=== PATIENT | male | born 1950 | race Two or more races ===

== ENCOUNTER 2020-06-20 03:29 | Inpatient (IN) | payer MEDICARE, OTHER ==
[2020-06-20] VITALS (13 sets, daily range): BP systolic 114–170; BP diastolic 54–111
[~2020-06-20] VITALS: Ht 165.1 cm; Wt 55.3 kg
--- NOTE | 2020-06-20 04:50 | NUR ---
POSTAL SUPERVISOR RCD PT FROM [place] TD OVERFLOW DX SYNCOPE, BRADYCARDIA, HYPOKALEMIA.PT IS A/O x4. [id number] ON MONITOR. ON ROOM AIR NO DISTRESS NOTED. NO SKIN BREAKDOWN NOTED. PT RESISTANT TO CARE STATING HE HOPES TO GO HOME TODAY AND DOES NOT WANT TO BE HERE. PT HESISTANT TO ANSWER ADMISSION QUESTIONS STATING HIS ANSWERS MIGHT AFFECT THTE CARE HE IS GIVEN.
[2020-06-20] MEDS ORDERED: ACETAMINOPHEN 325 MG TABLET PO PRN (05:30)
[2020-06-20] MEDS ORDERED: MAG HYDROX/AL HYDROX/SIMETH 30 ML UDC PO PRN (05:30)
[2020-06-20] MEDS ORDERED: ZOLPIDEM TARTRATE 5 MG TABLET PO PRN (05:30)
[2020-06-20] MEDS ORDERED: Z GUARD REMEDY 2 OZ OINT TP PRN (05:30)
[2020-06-20] MEDS ORDERED: MORPHINE SULFATE INJ 2 MG/ML DISP.SYRIN IV PRN (05:30)
[2020-06-20] MEDS ORDERED: ONDANSETRON HCL/PF 4 MG/2 ML VIAL IVP PRN (05:30)
[2020-06-20] MEDS ORDERED: MAGNESIUM HYDROXIDE 30 ML UDC PO PRN (05:30)
[2020-06-20] MEDS ORDERED: ATROPINE SULFATE 1 MG/10 ML DISP.SYRIN IV ONE (05:30)
[2020-06-20] MEDS ORDERED: HYDROCODONE/APAP 5/325MG TABLET PO PRN (05:30)
[2020-06-20] MEDS: IV NS 0.9% 1,000 ML IV PRN (05:54)
[2020-06-20 06:22] LABS: BASOPHILS % (AUTO) 0.3 % (0.0-2.0); EOSINOPHILS % (AUTO) 1.8 % (0.0-6.0); HEMATOCRIT 38 % (39-51); HEMOGLOBIN 12.5 g/dL (13.5-17.5); LYMPHOCYTES # (AUTO) 1.6 /CMM (0.8-4.8); LYMPHOCYTES % (AUTO) 27.1 % (20.0-44.0); MEAN CORPUSCULAR HGB CONC 33 g/dl (31.0-36.0); MEAN CORPUSCULAR VOLUME 96 fL (80-96); MONOCYTES # (AUTO) 0.6 /CMM (0.1-1.30); MONOCYTES % (AUTO) 10.5 % (2.0-12.0); NEUTROPHILS # (AUTO) 3.5 /CMM (1.8-8.9); NEUTROPHILS % (AUTO) 60.3 % (43.0-81.0); PLATELET COUNT (AUTO) 178 /CMM (150-450); RED BLOOD CELL COUNT(AUTO) 3.91 MIL/uL (4.5-6.0); WHITE BLOOD COUNT (AUTO) 5.9 K/uL (4.3-11.0)
--- NOTE | 2020-06-20 06:23 | NUR ---
SENIOR SHIPPING CLERK PT WILL ASK TO PROVIDE HIM WITH LIST OF HOME MEDS. PER PT ALL INFORMATION WAS GIVEN TO NURSE AT [place]. PT DECLINES SCDS AT THIS TIME.
[2020-06-20 06:48] LABS: CALCIUM, SERUM 8.9 mg/dL (8.5-10.1); CARBON DIOXIDE 27 mmol/L (21-32); CHLORIDE 108 mmol/L (98-107); GLUCOSE 110 mg/dL (74-106); POTASSIUM 4.5 mmol/L (3.5-5.1); SODIUM SERUM 143 mmol/L (136-145); UREA NITROGEN, BLOOD 20 mg/dL (7-18)
[2020-06-20 06:58] LABS: CHOLESTEROL 99 mg/dL (<200); HDL CHOLESTEROL 47 mg/dL (40-60); LDL 45 mg/dL (0-99); THYROID STIMULATING HORMONE 0.784 uIU/mL (0.358-3.74); TRIGLYCERIDES 42 mg/dL (30-150)
[2020-06-20 07:02] LABS: ALANINE AMINOTRANSFERASE 20 U/L (12-78); ALBUMIN 3.6 g/dL (3.4-5.0); ALKALINE PHOSPHATASE 64 U/L (46-116); ASPARTATE AMINOTRANSFERASE 16 U/L (15-37); BILIRUBIN,TOTAL 0.3 mg/dL (0.2-1.0); NT-PRO BNP 91 PG/ML (0-125); PHOSPHORUS 3.4 mg/dL (2.5-4.9); TOTAL PROTEIN, SERUM 6.8 g/dL (6.4-8.2)
[2020-06-20] MEDS ORDERED: SERT-438 PO (07:03)
[2020-06-20] MEDS ORDERED: DOCU100T28 PO (07:03)
[2020-06-20] MEDS ORDERED: OLAN15TA3 PO (07:03)
[2020-06-20] MEDS ORDERED: DOLU1TAB2 PO (07:03)
--- NOTE | 2020-06-20 07:05 | NUR ---
CLINICAL LEADER 0705-BEDSIDE REPORT TAKEN FROM [facility] NURSE DEMETRIUS RODRIGUEZ. PT AWAKE, ALERT ORIENTED X4, FOLLOWS COMMANDS AND RESTING COMFORTABLE IN BED. PT ON ROOM AIR TOLERATING WELL. LUNG SOUNDS CLEAR. PT SINUS ARLINE ON THE MONITOR HR 50S, PT AFEBRILE. BOWEL SOUNDS PRESENT, ABD SOFT NONDISTENDED. PT MOVES BUE AND BLE 5/5. SKIN CHECK DONE, SKIN INTACT, NO WOUNDS NOTED. BUE AND BLE PULSES PRESENT. PT CONTINENT, VOIDS IN URINAL. ALL PIV SITES ASSESSED. ALL IVF VERIFIED. VITALS STABLE. SAFETY MEAURES IN PLACE. NO SIGNS OF ACUTE DISTRESS AT THIS TIME. WILL CONTINUE TO MONITOR.
[2020-06-20 07:12] LABS: MAGNESIUM 2.3 mg/dL (1.8-2.4)
[2020-06-20] MEDS ORDERED: ATOR40TA PO (08:19)
[2020-06-20] MEDS ORDERED: LEVO125T8 PO (08:19)
[2020-06-20] MEDS ORDERED: GABA600T12 PO (08:20)
--- NOTE | 2020-06-20 08:21 | NUR ---
med recon nurse notes home medications verified with pt at bedside, but some of his medications unable to remember the names. primary nurse made aware.
--- NOTE | 2020-06-20 09:13 | NUR ---
MANAGER HEAVY DUTY 0907- PT REFUSING CARE AND WANTS TO LEAVE AMA. PT REFUSING TO SIGN AMA FORM, FORM SIGNED AND WITNESSED WITH CHARGE NURSE STAN RODRIGUEZ AND PLACED IN PT CHART. DR GASCA NOTIFIED ABOUT PT LEAVING AMA, OK PER .
--- NOTE | 2020-06-20 09:25 | NUR ---
PERITONEAL DIALYSIS REGISTERED NURSE 0925 DR CONTRERAS AT BEDSIDE TALKING TO PT. PT IRRATE AND ABOUT TO LEAVE AMA. MD CONVINCED PT TO STAY AND ALLOW FOR ORTHOSTATIC VITALS TO BE TAKEN. AWAITING FOR MD TO CALL BACK FOR RESULTS, WILL FOLLOW UP WITH MD IF CALL NOT RECEIVED. CHARGE NURSE STAN AT BEDSIDE TALKING TO PT, PT IRRATE AND ARGUMENTATIVE, DRESSED AND READY TO LEAVE. STANDING- HR- 79/ BP 170/110 (130)/ RR 14/ SPO2 94% SITTING - HR- 63/ BP 149/111 (124)/ RR24 /SPO2 96% LAYING DOWN- HR 47/ BP 123/74 (92)/ RR20/ SPO2 95%
--- NOTE | 2020-06-20 10:12 | NUR ---
SENIOR RESEARCH ENGINEER TELEPHONE REPORT GIVEN TO [facility] RN MADHU PER CHARGE NURSE STAN REQUEST, PENDING PT AND MD DECISION WHETHER PT TO STAY IN HOSPITAL OR TO LEAVE AMA. PT TRANSPORTED TO [facility] VIA WHEELCHAIR WITH ALL BELONGINGS. PT AWAKE, ALERT AND ORIENTED. PT AMBULATORY WITH STEADY GAIT. VITALS STABLE. SAFEYT MEASURES IN PLACE. NO SIGNS OF ACUTE DISTRESS AT THIS TIME. SECOND SET OF ORTHOSTATIC VITALS ENDORSED TO [facility] RN PER MD ORDER.
--- NOTE | 2020-06-20 10:16 | NUR ---
HAZMAT TANKER DRIVER NOTES RECEIVED PT FROM ICU VIA WHEELCHAIR, PATIENT COMPLAIN AND FILLED WITH ANXIETY UPON ARRIVAL,ALERT, AWAKE, ORIENTED X 3, PORTUGUESE SPEAKING, PROVIDED WARM BLANKET FOR COMFORT, COOPERATED WITH APPLICATION OF TELE-MONITOR SINUS ARLINE AND VS TAKEN, DENIES SOB OR ANY PAIN OR DISCOMFORT. ENCOURAGED TO RELAX , PENDING PT AND MD DECISION WHETHER PT TO STAY IN HOSPITAL OR TO LEAVE AMA, DISCUSSING MATTERS WITH PATIENT AT THIS TIME EDUCATING PATIENT ON PROS AND CONS IF HE GOES AMA, PT AMBULATORY WITH STEADY GAIT. SAFETY MEASURES IN PLACE. BED LOW LOCKED, UNIT ORIENTATION DONE AND USE OF CALL LIGHT. INSTRUCTED TO CALL FOR ASSIST.
--- NOTE | 2020-06-20 10:30 | NUR ---
RN NOTES PATIENT'S BROTHER AGUSTIN BEDSIDE. NOTIFIED ABOUT PATIENT UNCOOPERATIVE AND WISH TO GO AMA. PATIENT STILL REFUSED IV INSERTION.
--- NOTE | 2020-06-20 14:16 | NUR ---
RN NOTES RECEIVED PATIENT FROM ER - MED SURG DX. CHEST PAIN , MD GASCA, ALERT AWAKE X 4 WITH PERIOD OF DEPRESSION AND ANXIETY, ON ROOM AIR, NO SOB, RESPIRATION UNLABORED O2 SAT AT 96%. DENIES PAIN OR ANY DISCOMFORT AT THIS TIME. IC ACCESS D/C PER CARE DUE TO PATIENT WANTING TO GO AMA AND PULLING IV OUT, PATIENT CHOSE TO STAY ONE NIGHT , REFUSED NEW IV TO BE PLACED IN MED SURG, SITE SKIN ASSESSED, HEMORROIDS NOTED IRRITATED, PHOTOS OF SKIN ISSUES TAKEN AND INCORPORATED IN CHART. ON RENAL STANDARD DIET. ASSIST IN FEEDING. LEFT ARM CONTRACTED. USES URINAL. UNIT ORIENTATION AND USE OF CALL LIGHT DONE. BED LOW LOCKED, HOB ELEVATED 30 DEG. SAFETY MEASURES IN PLACE. WILL CONTINUE TO MONITOR. GIVEN TWO WARM BLANKETS FOR COMFORT OF UPPER AND LOWER EXTREMITIES C/O BEING TOO COLD, CALL LIGHT IN REACH, NEEDS ATTENDED TO IN A TIMELY MANNER. WILL CONTINUE TO MONITOR COOPERATING AT THIS TIME Addendum: 06/20/20 at 1703 by TAZ CHAMBERS RN CORRECTION DISREGARD THIS DOCUMENTATION INTENDED FOR ANOTHER PATIENT
[2020-06-20] MEDS: ENSURE ENLIVE 237 ML LIQUID (VANILLA) PO SCH (18:00)
--- NOTE | 2020-06-20 18:49 | NUR ---
RN NOTES PATIENT DEPRESSED , ENCOURAGED TO EAT DINNER COMPLIANT AND DID SO AFTER MUCH COMPLAINING OF WANTING AN MD DIAGNOSIS , EXPLAINED TO BE PATIENT AND EVALUATION AND CARE PLANNING IS IN PROCESS TO HELP TREAT HIS NEEDS, KEPT COMFORTABLE, CALL LIGHT IN REACH, ABLE TO MAKE NEEDS KNOWN, AMBULATED ON OWN TO AND FROM BATHROOM, NO SOB NOTED, NO LABORED BREATHING NOTED, ALL VS REMAINED IN NORMAL BASE LINE RANGE, WILL CONTINUE TO MONITOR, PATIENT STATED HE WILL LEAVE TOMORROW AM ON A BUS AMA IF NOT SEEN AND TREATED BY AN MD IN PERSON, THIS TASK WAS PERFORMED IN ER AND EXPLAINED TO HIM BUT HE IS STILL COMPLAINING WANTING TO SEE AN MD NOT AN RN AT THIS TIME, ALL SAFETY MEASURES IN PLACE, BED LOW TO FLOOR, CALL LIGHT IN REACH, MADE COMFORTABLE WITH MORE WARM BLANKETS, WATER, AND TELEVISION TO RELAX MIND
--- NOTE | 2020-06-20 19:50 | NUR ---
BUILDER OPERATOR OPENING NOTE PATIENT A/OX4; ABLE TO MAKE NEEDS KNOWN. ON ROOM AIR TOLERATING WELL WITH NO SOB. EXTERNAL MINE MOTOR OPERATOR READS NORMAL SINUS AND HR AT 80'S. PATIENT DENIES PAIN OR DISCOMFORT AT THIS TIME. NO IV ACCESS NOTED; PATIENT REFUSED. SAFETY MEASURES IN PLACE: BED IN LOWEST LOCKED POSITION, SIDERAILS UP X2, CALL LIGHT WITHIN EASY REACH, BED ALARMS ON. WILL CONTINUE PLAN OF CARE.
[2020-06-21] VITALS: BP 140/77
[2020-06-21 04:00] VITALS: BP 112/68
--- NOTE | 2020-06-21 06:14 | NUR ---
DIRECTOR EDUCATIONAL RADIO CLOSING NOTE PATIENT A/OX4; ABLE TO MAKE NEEDS KNOWN. ON ROOM AIR TOLERATING WELL WITH NO SOB. EXTERNAL PEOPLESOFT FINANCIAL DEVELOPER READS SINUS ARLINE AT 50'S. PATIENT DENIES PAIN OR DISCOMFORT AT THIS TIME. NO IV ACCESS NOTED; PATIENT REFUSED. SAFETY MEASURES IN PLACE: BED IN LOWEST LOCKED POSITION, SIDERAILS UP X2, CALL LIGHT WITHIN EASY REACH, BED ALARMS ON. WILL ENDORSE PLAN OF CARE TO ONCOMING MORNING RN
[2020-06-21 06:29] LABS: BASOPHILS % (AUTO) 0.3 % (0.0-2.0); EOSINOPHILS % (AUTO) 1.9 % (0.0-6.0); HEMATOCRIT 42 % (39-51); HEMOGLOBIN 13.9 g/dL (13.5-17.5); LYMPHOCYTES # (AUTO) 1.6 /CMM (0.8-4.8); LYMPHOCYTES % (AUTO) 27.9 % (20.0-44.0); MEAN CORPUSCULAR HGB CONC 33 g/dl (31.0-36.0); MEAN CORPUSCULAR VOLUME 97 fL (80-96); MONOCYTES # (AUTO) 0.5 /CMM (0.1-1.30); MONOCYTES % (AUTO) 8.1 % (2.0-12.0); NEUTROPHILS # (AUTO) 3.5 /CMM (1.8-8.9); NEUTROPHILS % (AUTO) 61.8 % (43.0-81.0); PLATELET COUNT (AUTO) 188 /CMM (150-450); RED BLOOD CELL COUNT(AUTO) 4.33 MIL/uL (4.5-6.0); WHITE BLOOD COUNT (AUTO) 5.7 K/uL (4.3-11.0)
[2020-06-21 06:44] LABS: ALBUMIN 3.8 g/dL (3.4-5.0); BILIRUBIN,DIRECT 0.1 mg/dL (0.0-0.2); BILIRUBIN,TOTAL 0.4 mg/dL (0.2-1.0); CALCIUM, SERUM 9.2 mg/dL (8.5-10.1); CREATININE 0.9 mg/dL (0.6-1.3); MAGNESIUM 2.1 mg/dL (1.8-2.4); PHOSPHORUS 3.2 mg/dL (2.5-4.9); POTASSIUM 4.5 mmol/L (3.5-5.1); TOTAL PROTEIN, SERUM 7.4 g/dL (6.4-8.2)
[2020-06-21 07:00] LABS: THYROID STIMULATING HORMONE 1.567 uIU/mL (0.358-3.74)
[2020-06-21] MEDS: IV NS 0.9% 1,000 ML IV PRN (07:26)
--- NOTE | 2020-06-21 07:40 | NUR ---
RN OPENING NOTE PATIENT IS CURRENTLY IN BED WITH HOB AT SEMI FOWLERS POSITION. PATIENT IS ON ROOM AIR WITH NO SIGNS OF LABORED BREATHING. PATIENT IS AOX4. SKIN IS INTACT. RFA #20 IS PATENT AND INTACT. BED IS LOCKED IN THE LOWEST POSITION, 3 GUARD RAILS RAISED, CALL PUCKETT WITHIN REACH, AND ALL HOSPITAL SAFETY PRECAUTIONS ARE BEING FOLLOWED. WILL CONTINUE TO MONITOR THROUGHOUT SHIFT.
[2020-06-21 08:00] VITALS: BP_SYST 130; BP_SYST 134; BP_DIAS 73; BP_DIAS 80; BP_DIAS 84
[2020-06-21] MEDS: ENSURE ENLIVE 237 ML LIQUID (VANILLA) PO SCH (09:08)
[2020-06-21 12:00] VITALS: BP 104/65
--- NOTE | 2020-06-21 14:15 | NUR ---
RN NOTE PATIENT HAS BEEN DISCHARGED IN STABLE CONDITION.
== END 2020-06-21 15:19 | disposition left against medical advice (07) | DRG 74 ==
LOC: ICU 04:42 → TELE-TD 10:32 → TELE1 10:48
PROVIDERS: ADMIT Internal Medicine; ATTEND Internal Medicine
DX: G90.8 Other disorders of autonomic nervous system (principal); R56.9 Unspecified convulsions; R00.1 Bradycardia, unspecified; F32.9 Major depressive disorder, single episode, unspecified; E03.9 Hypothyroidism, unspecified; F17.200 Nicotine dependence, unspecified, uncomplicated; E78.5 Hyperlipidemia, unspecified; F29 Unspecified psychosis not due to a substance or known physiological condition; Z79.899 Other long term (current) drug therapy; Z79.890 Hormone replacement therapy; I95.9 Hypotension, unspecified
CPT/HCPCS: 36415; 80048-TC; 80053-TC; 80061-TC; 80076-TC; 83735-TC; 83880; 84100-TC; 84443-TC; 84484-TC; 85025-TC; 93307-TC; G0378; J7030